=== PATIENT | male | born 1985 ===

== ENCOUNTER 2021-12-13 23:46 | Outpatient (CLI) | payer OTHER, SELFPAY ==
[2021-12-13] MEDS: Inhaler, Assist Device 1 EACH MC (16:05)
[2021-12-13] MEDS: Albuterol HFA 18 GM 200 PUFF INH IH (16:05)
== END 2021-12-13 23:47 | disposition home or self-care (01) ==
LOC: RT 12-15 23:46
PROVIDERS: Visit Provider Chiropractor
DX: R06.02 Shortness of breath (principal); Z02.71 Encounter for disability determination; R06.09 Other forms of dyspnea; F17.210 Nicotine dependence, cigarettes, uncomplicated; R94.2 Abnormal results of pulmonary function studies; J44.9 Chronic obstructive pulmonary disease, unspecified
CPT/HCPCS: 94060